=== PATIENT | female | born 1990 | race Hispanic/Latino ===

== ENCOUNTER 2020-07-02 17:00 | Outpatient (RCR) | payer BC | END 2020-07-03 | LOC: PT 17:00 | PROVIDERS: ATTEND Podiatrist Foot & Ankle Surgery | DX: S93.491A Sprain of other ligament of right ankle, initial encounter (principal) | CPT/HCPCS: 97139 ==

== ENCOUNTER → 2020-08-02 | Outpatient (RCR) | payer BC | LOC: PT 07-08 07:26 | PROVIDERS: ATTEND Podiatrist Foot & Ankle Surgery | DX: S93.491A Sprain of other ligament of right ankle, initial encounter (principal) ==

== ENCOUNTER 2020-08-29 08:00 | Outpatient (RCR) | payer BC | END 2020-09-02 | LOC: PT 08:00 | PROVIDERS: ATTEND Podiatrist Foot & Ankle Surgery ==

== ENCOUNTER 2021-04-02 09:00 | Outpatient (RCR) | payer BC | END 2021-04-04 | LOC: PT 09:00 | PROVIDERS: ATTEND Nurse Practitioner Family | DX: S76.011A Strain of muscle, fascia and tendon of right hip, initial encounter (principal) ==

== ENCOUNTER 2021-04-09 08:03 | Outpatient (RCR) | payer BC | END 2021-05-05 | LOC: PT 08:03 | PROVIDERS: ATTEND Nurse Practitioner Family | DX: S76.011A Strain of muscle, fascia and tendon of right hip, initial encounter (principal) ==